=== PATIENT | female | born 1990 | race Caucasian/White ===

== ENCOUNTER → 2018-05-22 12:51 | Outpatient (CLI) | payer OTHER, SELFPAY ==
--- NOTE | 2018-05-22 | DI.MRI.S_ITS ---
PROCEDURE: MR ANKLE RT WO CON INDICATIONS: Other synovitis and tenosynovitis, right ankle and foot TECHNIQUE: Noncontrast sagittal T1 spin echo and T2 fast spin echo with fat saturation, axial proton density fast spin echo and T2 fast spin echo with fat saturation, coronal T1 spin echo and T2 fast spin echo with fat saturation through the ankle/hindfoot. COMPARISON: None. FINDINGS: Image quality: Diagnostic. Bones and joints: There is no displaced fracture, dislocation, or suspicious osseous lesion identified involving the osseous structures of the right midfoot or hindfoot. Subtle areas of minimal marrow edema are identified diffusely throughout the mid foot. More focally prominent marrow edema is noted at the base of the 3rd metatarsal. The possibility of a subtle stress fracture dislocation is difficult to exclude and likely present. No significant joint effusions are identified. The ankle mortise is well-maintained. There are no osteochondral defects of the tibial plafond toward the talar dome. Medial structures: The deltoid and spring ligaments are intact and within normal limits. The tibialis posterior, flexor digitorum longus, and flexor hallucis longus tendons are intact and unremarkable. The posterior tibial nerve through the tarsal tunnel is within normal limits. Lateral structures: The anterior and posterior distal tibiofibular ligaments appear intact. The anterior and posterior talofibular ligaments are intact. The calcaneofibular ligament is intact. The peroneus brevis and peroneus longus tendons are intact and within normal limits. Normal fatty signal is seen within the sinus tarsi. Anterior structures: The tibialis anterior, extensor hallucis longus, and extensor digitorum longus tendons appear intact. Posterior and plantar structures: Achilles tendon is intact. Medial and lateral bands of the plantar fascia are of normal thickness. IMPRESSION: 1. Probable stress fracture involving the base of the 3rd metatarsal without a displaced fracture evident. 2. Patchy areas of mild marrow edema throughout the midfoot and hindfoot likely is related to stress reaction. 3. No ligamentous or tendinous abnormalities are appreciated. Dictated by: Santosh Reid M.D. on 05/22/2018 at 14:44 Approved by: Santosh Reid M.D. on 05/22/2018 at 14:46
--- NOTE | 2018-05-22 | DI.MRI.S_ITS ---
PROCEDURE: MR KNEE LT WO CON INDICATIONS: LEFT KNEE PAIN TECHNIQUE: Noncontrast sagittal PD fast spin echo and T2 fast spin echo with fat saturation, sagittal 3-D FLASH with fat saturation; coronal T1 spin echo and PD fast spin echo with fat saturation, and axial PD fast spin echo with fat saturation through the knee. COMPARISON: None. FINDINGS: Image quality: Diagnostic. Bones and joint: There is no acute fracture or dislocation. No suspicious osseous lesions are evident. No significant knee joint effusion is identified. There is no Dooley's cyst. No significant degenerative changes of the knee are evident. The hyaline articular cartilage is intact within all 3 compartments. Cruciate ligaments: The anterior and posterior cruciate ligaments are intact. Menisci: No displaced tears of the medial and lateral menisci are evident. The posterior root ligaments are intact. Medial structures: The medial collateral ligament is intact. The semimembranosus tendon insertion is intact. The imaged portions of the pes anserinus tendons are unremarkable. No significant fluid is contained within the pes anserinus bursa. Lateral structures: The popliteal tendon is intact. The lateral collateral ligament proper (fibular collateral ligament) and the proximal tibiofibular ligaments are intact. The distal aspect of the biceps femoris tendon and the iliotibial band are intact. Anterior structures: The quadriceps and patellar tendons are intact. There is no significant edema in the infrapatellar fat pad. IMPRESSION: Unremarkable MRI of the knee. There is no evidence of internal derangement. The tendons, menisci, and ligaments are intact. Dictated by: Santosh Reid M.D. on 05/22/2018 at 14:59 Approved by: Santosh Reid M.D. on 05/22/2018 at 15:03
== END ==
PROVIDERS: Visit Provider Podiatrist
DX: M65.871 Other synovitis and tenosynovitis, right ankle and foot (principal); R60.0 Localized edema; M25.562 Pain in left knee
CPT/HCPCS: 73721

== ENCOUNTER → 2018-05-30 10:42 | Outpatient (CLI) | payer OTHER, SELFPAY ==
--- NOTE | 2018-06-21 15:54 | P.HOLT.S_ITS ---
[facility] Specialist Report Referral & Results Date Patient Seen: 05/30/18 Requesting provider: Yosi Gutirerez Indication: Arrhythmia Duration of monitoring (days): 14 Diary information: Patient had 3 diary entries associated with sinus rhythm Patient had 22 triggered events all associated with sinus rhythm Data: Minimum heart rate was 47 beats per minute at 05:12 on 06/09/2018 Maximum heart rate was 140 beats per minute at 22:25 on 06/03/2018 Less than 1% of identified beats or either ventricular or supraventricular ectopic in origin Impression: Normal 14 day monitoring analyst without evidence of any significant dysrhythmia. Occasional to rare PVC and PAC. These do not appear to be asso ciated with any symptoms
== END ==
PROVIDERS: Visit Provider Physician Assistant
DX: I95.1 Orthostatic hypotension (principal)
CPT/HCPCS: 0296T; 0298T

== ENCOUNTER 2018-10-02 09:58 | Day surgery (SDC) | payer OTHER, SELFPAY ==
[2018-09-25 07:49] VITALS: BMI 20.5
[2018-10-02] VITALS (8 sets, daily range): BP systolic 101–124; BP diastolic 65–80; PULSE 60–111; RESP 10–17; TEMP 36.6–36.9; O2SAT 99–100; BMI 20.5
[2018-10-02] MEDS: LACTATED RINGERS 1,000 ML 42 ML IV ×2 (10:56→13:04)
[2018-10-02] MEDS: FAMOTIDINE 20 MG/50 ML PIGGYBACK 200 MG IV (11:18)
[2018-10-02] MEDS: MIDAZOLAM 2 MG/2 ML VIAL IV (11:19)
--- NOTE | 2018-10-02 11:33 | PM.PREOP ---
Pre-operative Note Interval Note History & Physical reviewed/Exam performed by Physician: Yes Changes to H&P: No
[2018-10-02] MEDS: CEFAZOLIN 2 GM/100 ML FROZ.PIGGY IV (11:45)
--- NOTE | 2018-10-02 12:17 | SUR.OPER ---
Supine on padded OR bed, head on pillow, arms secured on padded arm boards at <90 degrees abduction, legs uncrossed, safety belt at thigh, tape over blanket over left lower leg.
[2018-10-02] MEDS: BUPIVACAINE 0.25% W/ EPI 30 ML VIAL INJ (12:49)
[2018-10-02] MEDS: THROMBIN (RECOMBINANT) 5,000 UNIT VIAL 5000 UNIT TOP (13:03)
[2018-10-02] MEDS: HYDROMORPHONE 2 MG INJ 0.5 MG IV (14:10)
--- NOTE | 2018-10-02 14:18 | P.OP_ITS ---
Operative Date/Time/Diagnoses Date of procedure: 10/02/18 Time of procedure: 12:11 Pre-op diagnosis: 1. Tendinitis right flexor hallucis longus. m 77.9 2. Tendonitis right flexor digitorum longus 3. Tendinitis right posterior tibialis tendon 4. Tarsal tunnel syndrome right 5. Tear spring ligament Post-op diagnosis: other (1. Tendinitis right flexor hallucis longus 2. Tendinitis posterior tibialis tendon 3. Tendinitis digitorum longus 4. Tarsal tunnel syndrome) Procedure & Clinicians Procedure: 1. Flexor Tenosynovectomy ankle multiple tendons (posterior tibialis tendon, flexor hallucis longus, flexor digitorum longus) [id number] 2. Tarsal tunnel release CPT Code 40293 Same procedure as scheduled: Yes Indications: The patient is a 27-year-old female with a greater than 1 year history of symptomatic right foot and ankle flexor tenosynovitis flexor hallucis longus, flexor digitorum longus, posterior tibialis tendon. She also had symptoms of nerve compression despite a negative EMG. She had extensive conservative treatment with multiple rounds of physical therapy bracing immobilization and the medication trials without any relief in her pain. She also had an ultrasound by another provider that was concerning for spring ligament injury however this was not evident on MRI. After exhausting conservative treatment with continued pain the patient has been indicated for an open exploration debridement and tenosynovectomy of her right ankle flexor tendons including the FDL FHL posterior tibialis tendon, a release of the tarsal tunnel decompression of the tibial nerve and exploration and repair of structures as indicated as well as visual inspection of the spring ligament. The risks benefits and alternatives of the procedure were discussed with the patient in detail including but not limited to infection, persistent pain, generalized dissatisfaction with the procedure, wound healing problems, need for additional procedures, numbness, damage to nerves and vessels, DVT, pulmonary embolism, stroke paralysis a mutation. The patient has elected to proceed with the surgery. Consent was signed in the office. Surgeon: Dawna Abrams Click Yes if Unassisted: Yes Anesthesia Type: General and Local Operative Notes Findings: Spring ligament was intact with no evidence of attenuation or rupture Posterior tibialis tendon showed moderate tenosynovitis. There were no obvious tears. Flexor digitorum longus showed a tendinitis and tenosynovitis. This was debrided. No tears were noted. Flexor hallucis longus showed significant tenosynovitis and obvious fluid rel ease when the compartment was decompressed. No gross tears. Tendon was intact and demonstrated intact and functional with range of motion of the great toe. Tenosynovectomy was performed. Tibial nerve and tarsal tunnel release: The flexor retinaculum was notably thickened just distal to the medial malleolus directly over the tibial nerve. This was traced into the medial foot. The nerve had a significant amount of adhesive synovitis surrounding it as this was carefully debrided. There were no lacerations. There was a mild flattening and hourglass type of formation in the area of greatest compression. The nerve was traced distally and into the foot and a [place] was used to confirm release of all compressive points. Closure Type: primary Specimen(s): none sent Estimated Blood Loss (mL): 10 Blood products transfused: none Tourniquet time (min): 60 Procedure in detail: The patient was seen in the preoperative room the correct operative side was marked and informed consent confirmed. The patient was then brought back to the operating room by the anesthesia team and placed supine on the operative table. General anesthesia was administered. A well-padded thigh tourniquet was placed on the upper aspect of the thigh. All bony prominence were padded. An SCD was placed on the contralateral leg. Patient's operative leg was prepped and draped in the standard sterile fashion. A formal time-out procedure was performed confirming the patient, side, site of surgery and administration of appropriate preoperative antibiotics. Informed consent was present and accounted for. All were in agreement. A curvilinear medial incision just off the back of the medial malleolus following the course of the posterior tibialis tendon towards the navicular was drawn on the extremity. The [place] was then used to exsanguinate the leg and the tourniquet was raised to 250 mm of mercury stayed there for approximately 60 minutes. Sharp dissection was taken through the skin. The incision was carefully deepened bluntly through the subcutaneous tissues to expose the keel fashion for flexor retinaculum. First the tendon sheath for the posterior tibialis tendon was opened separately and the posterior tibialis tendon was inspected. No tears were found in this but there was some adhesive synovitis that was debrided. The posterior tibialis tendon was then retracted exposing the spring ligament and the talonavicular joint was taken through range of motion there were no defect at the spring ligament this was intact with no evidence of tear or rupture. Then dissection was bluntly taken posteriorly to identify the flexor wreck in axial on which again was divided and then blunt dissection taken down to identify the neurovascular bundle. The neurovascular bundle was then decompressed carefully with the tenotomy scissors. The tibial nerve was identified proximally and followed distally as it coursed under the flexor retinaculum. There is no space-occupying lesion. There was some evidence of constriction with hourglass formation in this area. The [place] was placed under the fights the retinaculum as it was incised. This was followed all the way distally past the level of the navicular. Additionally the posterior tibial tendon was retracted anteriorly and the floor of the tendon sheath incised to expose the flexor digitorum longus tendon. When this occurred there was some fluid that was decompressed. The flexor digitorum longus was then traced from the medial ankle into the foot. Tenosynovitis was debrided. No tears were found. Next attention was turned to exposing the FHL tendon deep within the foot this was then traced proximal to distal to the knot of [place]. There was a quite a bit of synovial fluid drained once this compartment was entered and significant amount of adhesive tenosynovitis particularly around the flexor hallucis longus tendon. This was thoroughly debrided from proximal to distal and a [place] was used to pass the farther distal to make sure the tendon was fully decompressed and free. Tendon function was tested for the posterior tibialis nerve flexor digitorum longus and flexor hallucis longus to make sure correct identification was determined. Additionally attention was returned to the tibial nerve to make sure this was completely decompressed along its course. The wound was then irrigated with saline. Thrombin and Gelfoam were used for hemostasis and the tourniquet was released. Once the tourniquet was let down hemostasis was achieved and the incision was closed in layers with 2 O Vicryl in the posterior tibialis tendon sheath followed by 3 0 PDS deep and 4 0 Monocryl and 60455 nylon. The incision was infiltrated with approximately 30 cc of 0.25% Marcaine with epinephrine. Xeroform gauze was placed. A bulky dressing and posterior splint were applied. All counts were correct. The patient was woken from anesthesia and taken to the recovery room in good condition. There no immediate complications from this procedure. Complications: none Condition: stable Disposition: PACU Plan for aftercare: Patient will be nonweightbearing on her right foot for approximately 2 weeks she will be in a splint. She will use Xarelto for 10 days as directed at which time she will be able to transition to aspirin. After 2 weeks she will start progressive weight-bearing protected in the boot over the next 6 weeks and at approximately 8 weeks she will be weaned out of the boot into a shoe.
[2018-10-02] MEDS: MEPERIDINE 100 MG/ML INJ IV (14:33)
[2018-10-02] MEDS: OXYCODONE/ACETAMINOPHEN 5/325 TABLET 1 TAB PO ×2 (14:38→15:28)
== END 2018-10-02 16:35 | disposition home or self-care (01) ==
PROVIDERS: PCP Physician Assistant; Visit Provider Orthopaedic Surgery Foot and Ankle Surgery
PROC: (CPT 27691; principal; 2018-10-02 12:15)
DX: G57.51 Tarsal tunnel syndrome, right lower limb (principal); M76.821 Posterior tibial tendinitis, right leg; M77.51 Other enthesopathy of right foot and ankle; S93.691D Other sprain of right foot, subsequent encounter; E55.9 Vitamin D deficiency, unspecified
CPT/HCPCS: 27681; 28035; J0690; J1170; J2175; J2250; J3010

== ENCOUNTER → 2019-01-28 08:19 | Outpatient (CLI) | payer OTHER, SELFPAY ==
--- NOTE | 2019-01-28 | DI.MRI.S_ITS ---
PROCEDURE: MR FOOT RT WO CON INDICATIONS: Pain in right foot TECHNIQUE: Noncontrast sagittal T1 spin echo and T2 fast spin echo with fat saturation, long-axis T1 spin echo and T2 fast spin echo with fat saturation, short-axis T1 spin echo and T2 fast spin echo with fat saturation through the forefoot. COMPARISON: [facility], CR, XR FOOT 3 VIEWS WEIGHT BEARING RIGHT, 08/15/2018, 9:24. FINDINGS: Image quality: Excellent. Bones and joints: There is diffuse marrow edema throughout fifth metatarsal shaft with no definite discrete fracture line seen suggestive of early stress fracture. No cortical disruption is seen. No other area of abnormal marrow signal is seen. No metatarsophalangeal joint degeneration. No intraosseous lesions. Soft tissues: The visualized plantar foot muscles demonstrate normal signal and bulk. Visualized flexor and extensor tendons appear intact, without tenosynovitis. The distal insertions of the peroneus brevis and longus tendons appear intact. The principal Lisfranc ligament appears intact. No soft tissue ganglion cysts or bursal fluid collections. Sagittal images demonstrate no evidence for plantar plate tears. IMPRESSION: Finding is suggestive of early stress fracture involving fifth metatarsal shaft with no definite cortical disruption or discrete fracture line seen at this time. Dictated by: Lars Daniel M.D. on 01/28/2019 at 12:06 Approved by: Lars Daniel M.D. on 01/28/2019 at 12:19
== END ==
PROVIDERS: PCP Physician Assistant; Visit Provider Physician Assistant
DX: M79.671 Pain in right foot (principal)
CPT/HCPCS: 73718

== ENCOUNTER 2019-05-06 12:16 | Emergency (ER) | payer OTHER, SELFPAY ==
[2019-05-06 12:49] VITALS: BP 108/73; PULSE 100; RESP 13; TEMP 36.7; O2SAT 98
--- NOTE | 2019-05-06 13:20 | ED.ARRPALP ---
HPI - Arrhythmia/Palpitations General Chief Complaint: Arrhythmia/Palpitations Stated Complaint: numbness, tachycardia Time Seen by Provider: 05/06/19 13:20 Source: patient Mode of arrival: Ambulatory Limitations: no limitations History of Present Illness HPI narrative: 28-year-old female. Has a history of POTS, complex regional pain syndrome, gastroparesis another other immune issues. Does not take anything specific for her POTS. States that for the past 3 weeks she feels like her heart rate has been fast. Today she stated that she gets some tingling in her hands and around her face which is why she came in for evaluation. She is trying her home vagal maneuvers without any improvement Related Data Home Medications Medication Instructions Recorded Confirmed promethazine 25 mg tablet 25 mg PO DAILY #60 tab 07/19/18 10/02/18 diclofenac epolamine [Flector] 1 patch TOPICAL Q12H 10/02/18 10/02/18 meloxicam 7.5 mg PO PRN PRN 10/02/18 10/02/18 methocarbamol 500 mg PO TID 10/02/18 10/02/18 naproxen 500 mg PO BID PRN 10/02/18 10/02/18 phenazopyridine 200 mg PO TID PRN 10/02/18 10/02/18 rizatriptan 5 mg PO Q2-4H PRN 10/02/18 10/02/18 amitriptyline 25 mg PO BEDTIME 05/06/19 05/06/19 ketoconazole 1 applic TOPICAL DIRECTED 05/06/19 05/06/19 Previous Rx's Medication Instructions Recorded oxycodone-acetaminophen [Percocet] 1 tab PO Q4H PRN #40 tab 10/02/18 rivaroxaban [Xarelto] 10 mg PO DAILY #10 tab 10/02/18 Allergies Allergy/AdvReac Type Severity Reaction Status Date / Time metoclopramide [From Reglan] Allergy Mild Verified 10/02/18 10:46 Review of Systems Constitutional Constitutional: Denies fever(s) and Denies headache(s) ENT Ears, Nose, Mouth, and Throat: Denies headache(s) Cardiovascular Cardiovascular: Denies chest pain, Reports rapid heart rate and Denies dyspnea Respiratory Respiratory: Denies cough and Denies dyspnea Gastrointestinal Gastrointestinal: Denies abdominal pain, Denies nausea and Denies vomiting Genitourinary Genitourinary: Denies dysuria Musculoskeletal Musculoskeletal: Denies myalgias and Denies arthralgias Integumentary/Breasts Skin/Breast: Denies lesions and Denies rash Neurologic Neurologic: Denies behavioral changes and Denies headache(s) Psychiatric Psychiatric: Denies behavioral changes Hematologic/Lymphatic Hematologic/Lymphatic: Denies easy bleeding and Denies easy bruising Patient History Medical History Gastroparesis (Acute) Osteoarthritis (Acute) Paresis of right lower extremity (Acute) Venous insufficiency (Acute) Surgical History (Updated 09/25/18 @ 08:05 by Kamla Rubio RN) History of prior ablation treatment (Acute) Social History household members: other Smoking Status: Never smoker alcohol intake: current Smoking Status: Never smoker Exam Initial Vital Signs Initial Vital Signs: Vital Signs Temperature 98.1 F 05/06/19 12:49 Pulse Rate 100 H 05/06/19 12:49 Respiratory Rate 13 05/06/19 12:49 Blood Pressure 108/73 05/06/19 12:49 Pulse Oximetry 98 05/06/19 12:49 Const General: cooperative, comfortable, well developed and well groomed Limitations: mental status not altered Resp Effort & Inspection: normal respiratory effort Auscultation: clear to auscultation bilaterally Cardio Rate: regular rate Rhythm: regular rhythm GI Inspection: non-distended Palpation: soft, No firm and No tender Skin Lesions: no lesions Rashes: no rashes Neuro General: alert, awake and oriented x3 Cognition: normal cognition Speech: speech normal Extrem General: normal to inspection and capillary refill normal Psych Appearance: grossly normal and well kempt Course Orders Ordered: ED Orders 05/06/19 13:48 Basic Metabolic Panel Stat Complete Blood Count AUTO DIFF Stat Magnesium Stat Phosphorous Stat Discontinued Medications Propranolol HCl (Inderal) 10 mg PO NOW ONE Stop: 05/06/19 13:29 Last Admin: 05/06/19 14:00 Dose: 10 mg Documented by: NIKITA Vital Signs Vital signs: Vital Signs - 8 hr 05/06/19 12:49 05/06/19 13:23 05/06/19 14:00 Temperature 98.1 F Pulse Rate 100 H 105 H 86 Respiratory Rate 13 18 19 Blood Pressure 108/73 Blood Pressure [Right Arm] 113/63 103/67 Pulse Oximetry 98 100 100 MDM - Arrhythmia/Palpitations Lab Data Attestation: I reviewed the patient's lab results. Result diagrams: 05/06/19 13:48 05/06/19 13:48 Labs: Lab Results 05/06/19 05/06/19 Range/Units 13:48 13:48 WBC 4.3 L (4.5-11.0) X10^3/uL RBC 4.21 (4.0-5.2) X10^6/uL Hgb 13.1 (12.0-16.0) g/dL Hct 38.6 (36-46) % MCV 91.7 (80-100) fL MCH 31.1 (26-34) PG MCHC 33.9 (30-36) % RDW 13.2 (11.6-14.8) % Plt Count 126 L (150-400) X10^3/uL Neut % (Auto) 55.9 (50-75) % Lymph % (Auto) 35.5 (25-40) % [place] % (Auto) 7.6 (3-14) % Eos % (Auto) 0.7 L (2-4) % Baso % (Auto) 0.3 (0-2) % Neut # (Auto) 2400 (9891-3327) /uL Lymph # (Auto) 1500 (6805-3897) /uL [place] # (Auto) 300 (0-900) /uL Eos # (Auto) 0 (0-450) /uL Baso # (Auto) 0 (0-100) /uL Sodium 139 (137-145) mmol/L Potassium 3.3 L (3.4-5.1) mmol/L Chloride 102 (98-107) mmol/L Carbon Dioxide 27 (22-32) mmol/L BUN 12 (7-17) mg/dL Creatinine 0.50 L (0.52-1.04) mg/dL Estimated GFR > 60.0 (>60) mL/min BUN/Creatinine Ratio 24.0 H (6-22) Glucose 131 H (70-100) mg/dL Calcium 9.2 (8.4-10.2) mg/dL Phosphorus 2.9 (2.5-4.5) mg/dL Magnesium 1.8 (1.6-2.3) mg/dL ECG Data Attestation: I personally reviewed and interpreted this ECG as follows: Prior ECG tracings: not available for review Interpretation: Sinus tachycardia Ventricular rate of 104 Normal axis Normal QRS Normal QTC No ST T wave changes MDM Narrative Medical decision making narrative: Patient's heart rate did improve somewhat with the propanolol. Her labs were unremarkable. Low suspicion for CVA. Low suspicion for TIA. Low suspicion for ACS. Talk with her about her medications. Asked her to follow-up with her medical department about further evaluation treatment. She was given return precautions. She expressed understanding and agreement plan. Discharge Plan Departure Patient Disposition: Home Clinical Impression: Palpitations, Paresthesias Instructions: Arrhythmias Activity Restrictions/Additional Instructions: Continue all of your medications as directed. Recommend you talk with your medical department about referrals to see either neurology/cardiology or rheumatology. Return to the emergency department for any new or worsening symptoms Prescriptions: No Action ketoconazole 2 % shampoo 1 applic TOPICAL DIRECTED RF: 0 amitriptyline 25 mg tablet 25 mg PO BEDTIME RF: 0 oxycodone-acetaminophen [Percocet] 5-325 mg tablet 1 tab PO Q4H PRN (Reason: pain) Qty: 40 RF: 0 diclofenac epolamine [Flector] 1.3 % Patch 12 Hour 1 patch TOPICAL Q12H RF: 0 meloxicam 7.5 mg Tablet 7.5 mg PO PRN PRN (Reason: Pain, Moderate) RF: 0 methocarbamol 500 mg Tablet 500 mg PO TID RF: 0 naproxen 500 mg Tablet 500 mg PO BID PRN (Reason: Pain, Mild) RF: 0 phenazopyridine 200 mg Tablet 200 mg PO TID PRN (Reason: uti) RF: 0 rizatriptan 5 mg Tablet,Disintegrating 5 mg PO Q2-4H PRN (Reason: Headache) RF: 0 Xarelto 10 mg tablet 10 mg PO DAILY Qty: 10 RF: 0 promethazine 25 mg tablet 25 mg PO DAILY Qty: 60 RF: 0 Referrals: Yosi Gutierrez PA-C [Primary Care Provider] -
[2019-05-06 13:23] VITALS: BP 113/63; PULSE 105; RESP 18; O2SAT 100
[2019-05-06 13:55] LABS: Add Manual Diff / Slide Review NO; Basophils Absolute Auto 0 /uL (0-100); Basophils Percent Auto 0.3 % (0-2); Eosinophils Absolute Auto 0 /uL (0-450); Eosinophils Percent Auto 0.7 % (2-4); Hematocrit 38.6 % (36-46); Hemoglobin 13.1 g/dL (12.0-16.0); Lymphocytes Absolute Auto 1500 /uL (1100-4500); Lymphocytes Percent Auto 35.5 % (25-40); Mean Corpuscular HGB Conc 33.9 % (30-36); Mean Corpuscular Hemoglobin 31.1 PG (26-34); Mean Corpuscular Volume 91.7 fL (80-100); Monocytes Absolute Auto 300 /uL (0-900); Monocytes Percent Auto 7.6 % (3-14); Neutrophils Absolute Auto 2400 /uL (1500-7000); Neutrophils Percent Auto 55.9 % (50-75); Platelet Count 126 X10^3/uL (150-400); Red Blood Cell Count 4.21 X10^6/uL (4.0-5.2); Red Cell Distribution Width 13.2 % (11.6-14.8); White Blood Cell Count 4.3 X10^3/uL (4.5-11.0)
[2019-05-06 14:00] VITALS: BP 103/67; PULSE 86; RESP 19; O2SAT 100
[2019-05-06] MEDS: PROPRANOLOL 10 MG TABLET PO (14:00)
[2019-05-06 14:14] LABS: Blood Urea Nitrogen 12 mg/dL (7-17); Calcium 9.2 mg/dL (8.4-10.2); Carbon Dioxide 27 mmol/L (22-32); Chloride 102 mmol/L (98-107); Estimated Glomerular Filt Rate > 60.0 mL/min (>60); Glucose 131 mg/dL (70-100); HEMOLYSIS < 15 (0-50); Magnesium 1.8 mg/dL (1.6-2.3); Phosphorous 2.9 mg/dL (2.5-4.5); Potassium 3.3 mmol/L (3.4-5.1); Sodium 139 mmol/L (137-145)
== END 2019-05-06 14:35 | disposition home or self-care (01) ==
PROVIDERS: Emergency Provider Emergency Medicine; PCP Physician Assistant
DX: R00.0 Tachycardia, unspecified (principal); R00.2 Palpitations; R20.0 Anesthesia of skin
CPT/HCPCS: 36415; 80048; 83735; 84100; 85025; 93005; 99283; 99284

== ENCOUNTER → 2019-12-25 14:25 | Outpatient (CLI) | payer OTHER, SELFPAY ==
--- NOTE | 2019-12-25 | DI.ECHO.S_ITS ---
[place] [facility]---------+ [facility] +---------+ : : [address] : : : : [id number] : : : : Phone: [phone]+ Echocardiogram Report + + :Name: SOHA CHAVES Study Date: 12/25/2019 Height: 64 in : :[facility] Weight: 120 lb : : Gender: Female BSA: 1.6 m2 : :: 1990 Age: 29 yrs BP: 108/77 mmHg: :Reason For Study: TACHYCARDIA : : Performed By: Ramona Varela : + + Interpretation Summary Normal sinus rhythm. Normal LV size, wall thickness, wall motion and LV systolic function. EF is 60-65%. Normal chamber sizes. No significant valvular abnormalities. No prior study available for comparison. Procedure: A two-dimensional transthoracic echocardiogram with color flow and Doppler was performed. The study quality was technically adequate. There is no prior echocardiogram noted for this patient. The patient was in sinus rhythm with heart rates between 60-75 bpm during the exam. Left Ventricle: The left ventricle is normal in size and wall thickness. The ejection fraction is estimated to be 60-65%. Diastolic parameters suggest probable normal left ventricular diastolic function and normal filling pressures. Right Ventricle: The right ventricle is normal in size and function. Atria: The left atrial size is normal. Right atrial size is normal. There is no Doppler evidence for an interatrial shunt. Mitral Valve: The mitral valve is normal in structure and function. There is trace mitral regurgitation. Aortic Valve: The aortic valve is trileaflet. The aortic valve opens well. There is no aortic valve stenosis. No aortic regurgitation is present. Tricuspid Valve: The tricuspid valve is normal in structure and function. There is trace tricuspid regurgitation. Pulmonic Valve: The pulmonic valve leaflets are thin and pliable; valve motion is normal. There is no pulmonic valvular regurgitation. Great Vessels: The aortic root is normal size. The dimensions of the ascending aorta are normal. The IVC is of normal diameter and collapses greater than 50% with a sniff. This suggests a low right atrial pressure of 3 mm Hg. Pericardium/ Pleura There is no pericardial effusion. There is no pleural effusion. MMode/2D Measurements & Calculations LVIDd: 4.7 cm LVOT diam: 1.9 cm LVIDs: 3.4 cm Ao root diam: 2.9 cm FS: 28.5 % asc Aorta Diam: 2.7 cm EPSS: 0.65 cm Ao Arch Diam (Prox Trans): 2.3 cm IVSd: 0.58 cm LVPWd: 0.56 cm LV henley. diameter/BSA (cm/m^2): 3.0 LV sys. diameter/BSA (cm/m^2): 2.1 LA A2 area: 17.1 cm2 RA long axis: 4.6 cm LA A4 area: 16.0 cm2 RA area: 11.6 cm2 LA length (vol): 4.9 cm RA vol: 25.0 ml LA vol: 46.9 ml RA : 15.9 ml/m2 LA vol index: 29.8 ml/m2 IVC diam: 1.5 cm RVD1 (basal): 2.6 cm TAPSE: 2.3 cm Doppler Measurements & Calculations Ao V2 max: 92.6 cm/sec LVOT Max Alexi: 75.2 cm/sec Ao V2 mean: 60.5 cm/sec LV V1 max P.3 mmHg Ao max P.4 mmHg LV V1 VTI: 16.4 cm Ao mean P.7 mmHg SERGIO(I,D): 2.4 cm2 Ao V2 VTI: 19.6 cm SERGIO(V,D): 2.3 cm2 sev ratio: 0.84 SERGIO indexed to BSA (cm^2/m^2): 1.5 MV E max alexi: 62.5 cm/sec PA V2 max: 75.2 cm/sec MV A max alexi: 46.4 cm/sec PA V2 mean: 54.6 cm/sec MV E/A: 1.3 PA mean P.3 mmHg Med Peak E' Alexi: 11.5 cm/sec PA pr(Accel): 17.3 mmHg E/E' med: 5.4 Lat Peak E' Alexi: 12.7 cm/sec E/E' lat: 4.9 E/e' average: 5.2 MV dec time: 0.20 sec SV(LVOT): 46.9 ml Electronically signed by: Su Orozco M.D. on Reading Physician:12/26/2019 12:53 AM
== END ==
PROVIDERS: PCP Family Medicine; Referring Provider Physician Assistant; Visit Provider Physician Assistant
DX: R00.0 Tachycardia, unspecified (principal)
CPT/HCPCS: 93306

== ENCOUNTER → 2020-02-03 07:33 | Outpatient (CLI) | payer OTHER, SELFPAY ==
--- NOTE | 2020-02-03 | DI.NM.S_ITS ---
PROCEDURE: NM GASTRIC EMPTYING STUDY RADIOPHARMACEUTICAL: 1 mCi Tc-99m sulfur colloid in an egg sandwich. INDICATIONS: GASTROPARESIS TECHNIQUE: A Tc-99m labeled sulfur colloid labeled egg sandwich or oatmeal was served to the patient. Anterior and posterior planar images of the abdomen were obtained at 0 minutes and 30 minutes, then at hourly intervals up to 4 hours. The patient was upright and ambulating during the interval. COMPARISON: None. FINDINGS: The stomach has normal size, morphology, and position. There is normal emptying of solid gastric contents from the stomach by visual inspection. No gastroesophageal reflux is visualized. The percentage of tracer retained at specific time points are as follows: Time point Percent gastric retention Normal range 30 minutes 70 percent 70% or more 1 hour 30 percent 30% to 90% 2 hours 13 percent 60% or less 3 hours 7 percent 30% or less IMPRESSION: Normal gastric emptying study. Dictated by: Jaswinder Villaseñor M.D. on 02/03/2020 at 12:38 Approved by: Jaswinder Villaseñor M.D. on 02/03/2020 at 12:39
== END ==
PROVIDERS: PCP Internal Medicine; Referring Provider Internal Medicine Gastroenterology; Visit Provider Internal Medicine Gastroenterology
DX: K31.84 Gastroparesis (principal)
CPT/HCPCS: 78264; A9541

== ENCOUNTER → 2020-03-01 09:50 | Outpatient (CLI) | payer OTHER, SELFPAY ==
[2020-03-01 12:04] LABS: COVID19 -Nasal RAPID Negative (Negative)
== END ==
PROVIDERS: PCP Internal Medicine; Visit Provider Physician Assistant
DX: Z11.59 Encounter for screening for other viral diseases (principal)
CPT/HCPCS: 87635

== ENCOUNTER 2020-03-03 08:30 | Day surgery (SDC) | payer OTHER, SELFPAY ==
[2020-03-03] VITALS (9 sets, daily range): BP systolic 81–103; BP diastolic 42–69; PULSE 62–93; RESP 11–17; TEMP 36.1–36.4; O2SAT 89–100; BMI 20.5
--- NOTE | 2020-03-03 | PATH_ITS ---
[facility] Accession Number: [id number] . 01 Material submitted: . gastrointestinal site - GASTRIC BIOPSY . 01 Clinical history: . SDC . 02 Diagnosis: Stomach, Biopsies: Gastric antral and body mucosa with mild chronic inflammation. Negative for Helicobacter organisms by immunohistochemistry. Negative for intestinal metaplasia. Negative for dysplasia or malignancy. . MRV 03/08/2020 1406 Local . 02 Electronically signed: . Jaxson Nevarez MD, PhD, Pathologist NPI- [id number] . 01 Gross description: . GASTRIC BIOPSY: Received in formalin are 2 fragment(s) of bragg, soft tissue measuring 0.4 x 0.2 x 0.1 cm to 0.3 x 0.3 x 0.1 cm submitted entirely in 1 cassette(s) /QBJ 03/04/2020 0637 Local . 02 Microscopic: . An immunohistochemical stain was performed to evaluate for Helicobacter organisms and is negative. The control stain showed appropriate reactivity. . * This test was developed and its performance characteristics determined by [facility]. It has not been cleared or approved by the U.S. Food and Drug Administration. The FDA has determined that such clearance or approval is not necessary. This test is used for clinical purposes. It should not be regarded as investigational or for research. . 02 Pathologist provided ICD-10: K29.70 . 02 CPT . 566005, G01366 Performed at: 01 [facility] [address] [facility], [place], [place] [id number] MD Ward Alvarez MD Phone: [phone] Performed at: 02 [facility] [address] [place], [place] [id number] MD Miriam Ramsey MD Phone: [phone]
--- NOTE | 2020-03-03 09:09 | PM.PREOP ---
Pre-operative Note COVID-19 COVID-19 status: Negative (EF) Interval Note History & Physical reviewed/Exam performed by Physician: Yes Changes to H&P: No ASA Class (for procedural sedation): II
[2020-03-03] MEDS: SODIUM CHLORIDE 0.9% 1,000 ML 84 ML IV (09:10)
--- NOTE | 2020-03-03 09:10 | PM.OP.ENDO ---
Operative Date/Time/Diagnoses Date of procedure: 03/03/20 Pre-op diagnosis: See indication and findings Procedure & Clinicians Study performed: EGD Same procedure as scheduled: Yes Indications: Nausea and vomiting Surgeon: Jose Daniel Gtz Procedure Notes Procedure in detail: After informed consent was obtained the patient was placed in left lateral decubitus position. Video upper scope placed into the oropharynx and with the patient's help swallowed into the esophagus. The esophagus stomach and duodenum were carefully examined. On withdrawal retroflexed view of the GE junction was performed. The scope was removed. The patient tolerated procedure well. Blood loss none Complications none Sedation Total sedation time 8 minutes Versed 9 mg fentanyl 200 micro g IV titration. Zofran 4 mg IV The findings 1. Normal esophagus with normal squamocolumnar junction 2. Mild patchy erythema throughout the stomach particularly in the antrum. Biopsies taken to rule out significant gastritis, Helicobacter, eosinophilic gastritis. 3. Normal duodenal bulb and sweep. Will be in touch regarding pathology.
[2020-03-03] MEDS: ONDANSETRON 4 MG/2 ML INJ IV (09:15)
[2020-03-03] MEDS: fentaNYL 250 MCG/5 ML INJ IV (09:29)
[2020-03-03] MEDS: MIDAZOLAM 5 MG/5 ML VIAL IV (09:29)
--- NOTE | 2020-03-03 10:26 | SUR.PHASEII ---
Dr Gtz by to speak with patient and order received for Phenergan po 25mg per pt request and Dr Gtz verbal order. Pt with cold compress on forehead and sniffing queasease talkative and relaxed.
[2020-03-03] MEDS: PROMETHAZINE 25 MG SUPP PR (10:48)
--- NOTE | 2020-03-03 11:20 | SUR.PHASEII ---
1100-Pt states nausea better now after pr phenergan 25mg given earlier, pt up and ambulating gait steady. getting dressed now at bs with no c/o
--- NOTE | 2020-03-03 11:22 | SUR.PHASEII ---
1110-Pt dcd in stable condition and good spirits via wc
== END 2020-03-03 11:10 | disposition home or self-care (01) ==
PROVIDERS: PCP Internal Medicine; Referring Provider Internal Medicine; Visit Provider Internal Medicine Gastroenterology
PROC: 0DJ08ZZ Inspection of Upper Intestinal Tract, Via Natural or Artificial Opening Endoscopic (ICD-10-PCS; CPT 43235; principal; 2020-03-03 09:30)
DX: K29.50 Unspecified chronic gastritis without bleeding (principal)
CPT/HCPCS: 43239; J2250; J2405; J3010

== ENCOUNTER → 2020-06-11 12:35 | Outpatient (CLI) | payer OTHER, SELFPAY ==
--- NOTE | 2020-06-11 13:53 | DI.MRI.S_ITS ---
PROCEDURE: MR TMJ WO CON INDICATIONS: Jaw pain TECHNIQUE: Axial T1 spin echo, coronal and sagittal PD fast spin echo through the temporomandibular joints, in both the closed- and open-mouth positions. COMPARISON: None. FINDINGS: Image quality: Excellent. Right: Joint is normally aligned on closed and open-mouth positioning. Articular disk demonstrates normal location and morphology. No bony erosions or osteophytes. Left: Joint is normally aligned on closed and open-mouth positioning. Articular disk demonstrates normal location and morphology. No bony erosions or osteophytes. Prominent fluid within the mastoid air cells is present bilaterally. IMPRESSION: 1. Prominent bilateral mastoid air cell fluid. Recommend correlation mastoiditis. 2. No TMJ pathology identified. Dictated by: Brielle Frye M.D. on 06/11/2020 at 15:43 Approved by: Brielle Frye M.D. on 06/11/2020 at 15:46
== END ==
PROVIDERS: PCP Internal Medicine; Referring Provider Dentist Oral and Maxillofacial Surgery; Visit Provider Dentist Oral and Maxillofacial Surgery
DX: R68.84 Jaw pain (principal)
CPT/HCPCS: 70336

== ENCOUNTER → 2021-05-13 17:54 | Outpatient (CLI) | payer OTHER, SELFPAY ==
--- NOTE | 2021-05-13 | DI.MRI.S_ITS ---
PROCEDURE: MR ANKLE RT WO CON INDICATIONS: Right tendinitis, knot of Austen pain TECHNIQUE: Noncontrast sagittal T1 spin echo and T2 fast spin echo with fat saturation, axial proton density fast spin echo and T2 fast spin echo with fat saturation, coronal T1 spin echo and T2 fast spin echo with fat saturation through the ankle/hindfoot. COMPARISON: [facility], MR, MR ANKLE RT WO CON, 05/22/2018, 13:03. FINDINGS: Image quality: There is mild inhomogeneous fat saturation. Bones and joints: No bone marrow contusions or fractures. No hindfoot coalitions. No osteochondral lesions of the talar dome. No pathologic joint effusions. Medial structures: The posterior tibialis, flexor digitorum longus, and flexor hallucis longus tendons are intact without associated tenosynovial fluid. Specifically, no evidence of tenosynovitis or peritendinous edema in the region of the master knot of Austen. The posterior tibial neurovascular bundle appears normal within the tarsal tunnel, without extrinsic mass effect. The deltoid and spring ligament components appear intact. No subjacent mass, fluid collection, or definite abnormal edema demonstrated subjacent to the cutaneous marker within the plantar medial aspect of the midfoot. Lateral structures: The anterior talofibular, calcaneofibular, and posterior talofibular ligaments appear intact. More superiorly, the anterior and posterior tibiofibular ligaments appear intact, as is the intermalleolar ligament. The tibiofibular syndesmosis is normal in width at 2 mm or less. The peroneus longus and brevis tendons demonstrate normal location and morphology. Adjacent bony peroneal tubercle and retrotrochlear prominence are normal in size. The sinus tarsi demonstrates normal fatty signal, without edema, fibrosis, or cyst formation. The calcaneonavicular and calcaneocuboid components of the bifurcate ligament appear intact. The dorsal calcaneocuboid ligament appears intact. Anterior structures: The tibialis anterior, extensor hallucis longus, and extensor digitorum longus tendons appear intact. The dorsal talonavicular ligament appears intact. Posterior and plantar structures: Achilles tendon is intact. Medial and lateral bands of the plantar fascia are of normal thickness. No abductor digiti quinti muscle atrophy to suggest Guerrero neuropathy. IMPRESSION: 1. No evidence of tenosynovitis or definite peritendinitis. Specifically, no tenosynovial fluid located in the region of the master knot of Austen. 2. No discrete subjacent mass, fluid collection, or definite abnormal edema in the area of clinical concern. 3. No acute internal derangement. Dictated by: Ward Lewis M.D. on 05/16/2021 at 12:08 Approved by: Ward Lewis M.D. on 05/16/2021 at 12:18
== END ==
PROVIDERS: PCP Nurse Practitioner Family; Referring Provider Podiatrist; Visit Provider Podiatrist
DX: M77.9 Enthesopathy, unspecified (principal); M79.671 Pain in right foot
CPT/HCPCS: 73721

== ENCOUNTER → 2022-02-24 08:20 | Outpatient (CLI) | payer OTHER, SELFPAY ==
--- NOTE | 2022-02-24 08:22 | DI.MRI.S_ITS ---
PROCEDURE: MR ANKLE LT WO CON INDICATIONS: Pain in left ankle and joints of left foot TECHNIQUE: Noncontrast sagittal T1 spin echo and T2 fast spin echo with fat saturation, axial proton density fast spin echo and T2 fast spin echo with fat saturation, coronal T1 spin echo and T2 fast spin echo with fat saturation through the ankle/hindfoot. COMPARISON: [facility] [place], CR, XR FOOT 3 VIEWS WEIGHT BEARING RIGHT, 08/15/2018, 9:24. FINDINGS: Image quality: Excellent. Bones and joints: No bone marrow contusions or fractures. No hindfoot coalitions. No osteochondral injuries of the talar dome. No pathologic joint effusions. Medial structures: The deep and superficial layers of the deltoid ligament appear intact. The spring ligament components are intact. The posterior tibialis, flexor digitorum longus, and flexor hallucis longus tendons are intact. The posterior tibial neurovascular bundle appears normal within the tarsal tunnel, without extrinsic mass effect. Lateral structures: Mild thickening of the anterior talofibular ligament may be secondary to a remote prior sprain. The calcaneofibular and posterior talofibular ligaments appear intact. The anterior and posterior tibiofibular ligaments appear intact. The peroneus longus and brevis tendons demonstrate normal location and morphology. The sinus tarsi demonstrates normal fatty signal. Anterior structures: The tibialis anterior, extensor hallucis longus, and extensor digitorum longus tendons appear intact. The dorsal talonavicular ligament appears intact. Posterior and plantar structures: Achilles tendon is intact. Medial and lateral bands of the plantar fascia are of normal thickness. No abductor digiti quinti muscle atrophy to suggest Guerrero neuropathy. IMPRESSION: 1. Remote prior low-grade sprain of the anterior talofibular ligament. 2. No acute trabecular bone injury. No acute ligament or tendon injury is seen. Approved by: Tom Sims M.D. on 02/24/2022 at 11:00
== END ==
PROVIDERS: PCP Student in an Organized Health Care Education/Training Program; Referring Provider Physical Medicine & Rehabilitation; Visit Provider Physical Medicine & Rehabilitation
DX: S93.492A Sprain of other ligament of left ankle, initial encounter (principal); M25.572 Pain in left ankle and joints of left foot
CPT/HCPCS: 73721

== ENCOUNTER 2022-03-15 15:14 | Emergency (ER) | payer OTHER, SELFPAY ==
[2022-03-15 15:26] VITALS: BP 107/69; PULSE 88; RESP 18; O2SAT 100
[2022-03-15] MEDS: ACETAMINOPHEN 325 MG TABLET 975 MG PO (17:01)
[2022-03-15] MEDS: KETOROLAC 30 MG/ML VIAL 15 MG IM (17:01)
[2022-03-15] MEDS: DEXAMETHASONE 10 MG/ML VIAL PO (17:02)
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
[2022-03-15 17:15] VITALS: BP 117/74; PULSE 80; RESP 12; O2SAT 100
== END 2022-03-15 17:16 | disposition home or self-care (01) ==
PROVIDERS: Emergency Provider Nurse Practitioner Critical Care Medicine; PCP Student in an Organized Health Care Education/Training Program
DX: S09.92XA Unspecified injury of nose, initial encounter (principal); W51.XXXA Accidental striking against or bumped into by another person, initial encounter
CPT/HCPCS: 96372; 99283; J1100; J1885

== ENCOUNTER → 2022-03-21 10:20 | Outpatient (CLI) | payer OTHER, SELFPAY ==
--- NOTE | 2022-03-21 | DI.RAD.S_ITS ---
PROCEDURE: XR ABDOMEN 1V INDICATIONS: CONSTIPATION TECHNIQUE: One view of the abdomen acquired. COMPARISON: None. FINDINGS: Surgical changes and devices: Two Sitz markers are seen, 1 in the right abdomen, probably within hepatic flexure colon and 1 in the right abdomen, probably within the splenic flexure of colon. Bowel: Bowel gas pattern is normal. There is a large amount of stool in colon. 2 markers are seen Soft tissues: No suspicious abdominal calcifications. Visualized solid organ contours appear normal in size. Note is made of an IUD. Bones: No suspicious bony lesions. IMPRESSION: 1. 2 Sitz markers are present, probably within the colon. 2. A large amount of stool in colon. Dictated by: Joi Burris M.D. on 03/21/2022 at 16:28 Approved by: Joi Burris M.D. on 03/21/2022 at 16:34
== END ==
PROVIDERS: PCP Student in an Organized Health Care Education/Training Program; Referring Provider Internal Medicine Gastroenterology; Visit Provider Internal Medicine Gastroenterology
DX: K59.00 Constipation, unspecified (principal)
CPT/HCPCS: 74018

== ENCOUNTER → 2022-04-12 16:15 | Outpatient (CLI) | payer OTHER, SELFPAY ==
--- NOTE | 2022-04-12 | DI.MRI.S_ITS ---
PROCEDURE: MR CERVICAL SPINE WO/W CON INDICATIONS: PARESTHESIA OF SKIN TECHNIQUE: Noncontrast sagittal T1 spin echo and T2 fast spin echo, sagittal STIR, sagittal PD fast spin echo, foraminal oblique sagittal T2 fast spin echo, axial gradient echo or T2 fast spin echo through the cervical spine. After the administration of contrast, sagittal and axial T1 spin echo with fat saturation through the cervical spine. COMPARISON: [facility], MR, MR BRAIN WITH/WITHOUT CONTRAST, 09/30/2020, 9:29. [facility], MR, MR THORACIC SPINE WO/W CON, 04/12/2022, 16:59. [facility], MR, MR HEAD/BRAIN WO/W CON, 04/12/2022, 16:30. FINDINGS: Image quality: This examination is limited by involuntary motion artifact. Alignment and curvature: There is normal bony alignment. Marrow: Marrow demonstrates normal overall signal. Spinal cord: Visualized spinal cord is normal in size, without white matter lesions. No suspicious intramedullary enhancement. No cerebellar tonsillar herniation. Paraspinous soft tissues: No paravertebral masses or suspicious enhancement. No significant degenerative change is seen. IMPRESSION: Motion limited study, without suspicious white matter lesions seen. No abnormal enhancement is seen. Dictated by: Cristiano Bishop M.D. on 04/12/2022 at 17:26 Approved by: Cristiano Bishop M.D. on 04/12/2022 at 17:27
--- NOTE | 2022-04-12 | DI.MRI.S_ITS ---
PROCEDURE: MR HEAD/BRAIN WO/W CON INDICATIONS: PARESTHESIA OF SKIN TECHNIQUE: Noncontrast sagittal and axial FLAIR, axial and coronal T2 fast spin echo, axial VIBE, axial gradient echo, axial diffusion and ADC through the brain. After the administration of contrast, axial and coronal and sagittal VIBE with fat saturation through the brain. COMPARISON: [facility], MR, MR BRAIN WITH/WITHOUT CONTRAST, 09/30/2020, 9:29. [facility], MR, MR THORACIC SPINE WO/W CON, 04/12/2022, 16:59. [facility], MR, MR CERVICAL SPINE WO/W CON, 04/12/2022, 16:43. FINDINGS: Image quality: Excellent. CSF spaces: Ventricles are normal in size and shape. Basal cisterns are patent. No extra-axial fluid collections. Brain: No intracranial bleeds or mass effects. Martinez-white matter interface appears intact. No suspicious white matter lesions. No abnormal intracranial enhancement. Diffusion weighted images show no acute ischemic insults. Brainstem appears normal. Normal intravascular flow voids are present. Skull and face: Calvarial marrow signal is normal. Orbits appear normal. Sinuses: No significant paranasal sinus disease is seen. There is mild right-sided and [id number] left-sided mastoid air cell fluid seen. IMPRESSION: No imaging explanation is found for this patient's presenting symptoms. No findings of acute or subacute infarction can be seen. No suspicious white matter lesions are seen. No masses or abnormal enhancement can be seen. Mastoid air cell fluid again noted Dictated by: Cristiano Bishop M.D. on 04/12/2022 at 17:23 Approved by: Cristiano Bishop M.D. on 04/12/2022 at 17:26
--- NOTE | 2022-04-12 | DI.MRI.S_ITS ---
PROCEDURE: MR THORACIC SPINE WO/W CON INDICATIONS: PARESTHESIA OF SKIN TECHNIQUE: Noncontrast sagittal T1 spin echo and T2 fast spin echo, sagittal STIR, axial T1 and T2 fast spin echo through the thoracic spine. After the administration of contrast, axial and sagittal T1 spin echo with fat saturation through the thoracic spine. COMPARISON: [facility], MR, MR CERVICAL SPINE WO/W CON, 04/12/2022, 16:43. [facility], MR, MR HEAD/BRAIN WO/W CON, 04/12/2022, 16:30. FINDINGS: Image quality: This examination is limited by involuntary motion artifact. Alignment and curvature: There is normal bony alignment. Marrow: Marrow is of normal overall signal. No acute vertebral body compression fractures. Spinal cord: Visualized spinal cord is of normal signal and size, without abnormal enhancement. Paraspinous soft tissues: No paravertebral masses or abnormal enhancement. Miscellaneous: Central canal and foramina appear widely patent at all scanned levels. IMPRESSION: No suspicious white matter lesions are seen. No abnormal enhancement is seen. Dictated by: Cristiano Bishop M.D. on 04/12/2022 at 17:28 Approved by: Cristiano Bishop M.D. on 04/12/2022 at 17:29
== END ==
PROVIDERS: PCP Student in an Organized Health Care Education/Training Program; Referring Provider Psychiatry & Neurology Neurology; Visit Provider Psychiatry & Neurology Neurology
DX: R20.2 Paresthesia of skin (principal); G43.719 Chronic migraine without aura, intractable, without status migrainosus
CPT/HCPCS: 70553; 72156; 72157; A9579

== ENCOUNTER 2022-08-26 18:55 | Emergency (ER) | payer OTHER, SELFPAY ==
[2022-08-26 18:59] VITALS: BP 119/75; PULSE 86; RESP 18; TEMP 36.6; O2SAT 100; BMI 20.5
--- NOTE | 2022-08-26 19:06 | DI.RAD.S_ITS ---
PROCEDURE: XR FINGER LT MIN 2V INDICATIONS: swelling/pain/redness TECHNIQUE: AP hand, 2 views of the 3rd finger(s) acquired. COMPARISON: None. FINDINGS: Bones: No fractures or dislocations. No suspicious bony lesions. Soft tissues: No suspicious soft tissue calcifications. IMPRESSION: No acute osseous abnormality. Consider follow-up radiographs in 10-14 days. Dictated by: Yan Lewis M.D. on 08/26/2022 at 20:10 Approved by: Yan Lewis M.D. on 08/26/2022 at 20:11
--- NOTE | 2022-08-26 20:31 | ED.EXTPRO ---
HPI - Extremity Problem General Chief complaint: Extremity Problem,Nontraumatic Stated complaint: left hand/middle finger pain x1 day Time Seen by Provider: 08/26/22 19:50 Source: patient Mode of arrival: Wheelchair History of Present Illness HPI Narrative: Patient is a 31-year-old female who is here for evaluation of pain and redness and swelling to the middle finger of her left hand. States the symptoms started this morning. She went to a walk-in clinic. Was prescribed Bactrim. Has only taken 1 dose of this medication. Was told that if her symptoms worsen she needs to come to the emergency department. She thought that the redness was getting worse. She states she is taking her 2 mg hydromorphone tablets and actually took 2 these tablets at 1 time at home because of the discomfort. She has had a history of MRSA Related Data Home Medications Medication Instructions Recorded Confirmed promethazine 25 mg tablet 25 mg PO DAILY #60 tabs 07/19/18 03/03/20 methocarbamol 500 mg tablet 500 mg PO TID 10/02/18 03/03/20 rizatriptan 5 mg disintegrating 5 mg PO Q2-4H PRN Headache 10/02/18 03/03/20 tablet cetirizine 10 mg tablet (Zyrtec) 10 mg PO DAILY 03/03/20 03/03/20 montelukast 10 mg tablet 10 mg PO BEDTIME 03/03/20 03/03/20 (Singulair) propranolol 10 mg tablet 10 mg PO BID 03/03/20 03/03/20 Allergies Allergy/AdvReac Type Severity Reaction Status Date / Time nima Allergy Mild Verified 03/03/20 08:50 metoclopramide [From Reglan] Allergy Mild Verified 10/02/18 10:46 ondansetron [From Zofran] AdvReac Vomiting Verified 08/26/22 18:59 Review of Systems Constitutional Constitutional: Reports system reviewed and no additional complaints, except as documented Musculoskeletal Musculoskeletal: Reports system reviewed and no additional complaints, except as documented Integumentary/Breasts Skin/Breast: Reports system reviewed and no additional complaints, except as documented Neurologic Neurologic: Reports system reviewed and no additional complaints, except as documented Patient History Medical History Gastroparesis Osteoarthritis Paresis of right lower extremity Venous insufficiency Surgical History History of prior ablation treatment Social History household members: other Smoking Status: Never smoker alcohol intake: current Smoking Status: Never smoker alcohol intake frequency: a few times a month Substance Use Type: does not use Exam Initial Vital Signs Initial Vital Signs: Vital Signs Temperature 97.9 F 08/26/22 18:59 Pulse Rate 86 08/26/22 18:59 Respiratory Rate 18 08/26/22 18:59 Blood Pressure 119/75 08/26/22 18:59 Pulse Oximetry 100 08/26/22 18:59 Oxygen Delivery Method Room Air 08/26/22 18:59 Const General: cooperative, comfortable and No ill appearing Skin Other: Patient does have redness over her left middle finger specifically over the PIP joint. There are no breaks in the skin. No pustules. No vesicles. Neuro Sensory Exam: no sensory deficits noted Extrem Other: Patient does have discomfort over the PIP joint of the left middle finger. Course Orders Ordered: ED Orders 08/26/22 19:06 XR finger LT min 2V Stat Vital Signs Vital signs: Vital Signs - 8 hr 08/26/22 20:57 Temperature 98.2 F Pulse Rate 78 Respiratory Rate 16 Blood Pressure 121/79 Pulse Oximetry 100 Oxygen Delivery Method Room Air MDM - Extremity (Nontraumatic) Imaging Data Extremity x-ray #1: Radiologist's Impression: PROCEDURE:? XR FINGER LT MIN 2V ? INDICATIONS:? swelling/pain/redness ? TECHNIQUE:? AP hand, 2 views of the 3rd finger(s) acquired.? ? COMPARISON:? None. ? FINDINGS:? ? Bones:? No fractures or dislocations.? No suspicious bony lesions.? ? Soft tissues:? No suspicious soft tissue calcifications.? ? IMPRESSION:? No acute osseous abnormality. ? MDM Narrative Medical decision making narrative: X-ray shows no signs of a fracture. I have low suspicion for flexor tenosynovitis. There was no indication that there is any abscess. She is only been on antibiotics for less than 1 day. No indication to change these antibiotics. No indication for admission to the hospital or IV antibiotics. She was given return precautions. She expressed understanding and agreement. Discharge Plan Departure Patient Disposition: Home Clinical Impression: Cellulitis Instructions: FRANK for Cellulitis -- Adult Activity Restrictions/Additional Instructions: I do recommend that you continue to take the antibiotics as directed. You can take the pain medication that you have at home as directed for pain control. Contact your primary doctor for follow-up. Return to the emergency department for worsening symptoms like we discussed. Prescriptions: No Action propranolol 10 mg Tablet 10 mg PO BID cetirizine [Zyrtec] 10 mg Tablet 10 mg PO DAILY montelukast [Singulair] 10 mg Tablet 10 mg PO BEDTIME methocarbamol 500 mg Tablet 500 mg PO TID rizatriptan 5 mg Tablet,Disintegrating 5 mg PO Q2-4H PRN (Reason: Headache) promethazine 25 mg tablet 25 mg PO DAILY Qty: 60 Referrals: Yuriy Gray DO [Primary Care Provider] - Stand Alone Forms: Patient Portal/API
[2022-08-26 20:57] VITALS: BP 121/79; PULSE 78; RESP 16; TEMP 36.8; O2SAT 100
== END 2022-08-26 20:59 | disposition home or self-care (01) ==
PROVIDERS: Emergency Provider Emergency Medicine; PCP Student in an Organized Health Care Education/Training Program
DX: L03.012 Cellulitis of left finger (principal)
CPT/HCPCS: 73140; 99283